=== PATIENT | female | born 1985 | race Caucasian/White ===

== ENCOUNTER → 2023-10-16 09:02 | Outpatient (REF) | payer BC, SELFPAY | LOC: RAD 09:02 | PROVIDERS: ATTENDING PHYSICIAN Student in an Organized Health Care Education/Training Program | DX: R10.11 Right upper quadrant pain (principal) | CPT/HCPCS: 76700 ==

== ENCOUNTER → 2023-11-14 13:45 | Outpatient (REF) | payer BC, SELFPAY | LOC: RAD 13:45 | PROVIDERS: ATTENDING PHYSICIAN Student in an Organized Health Care Education/Training Program | DX: M79.652 Pain in left thigh (principal) | CPT/HCPCS: 93971 ==

== ENCOUNTER → 2024-07-06 13:04 | Outpatient (REF) | payer BC, SELFPAY | LOC: HWRAD 13:04 | PROVIDERS: ATTENDING PHYSICIAN Physician Assistant Medical | DX: M54.41 Lumbago with sciatica, right side (principal) | CPT/HCPCS: 72110 ==